=== PATIENT | female | born 1930 | race Caucasian/White ===

== ENCOUNTER 2021-08-17 11:08 | Emergency (ER) | payer MEDICARE, OTHER ==
[~2021-08-17] VITALS: Ht 160 cm; Wt 59.0 kg
[2021-08-17] MEDS ORDERED: ACETAMINOPHEN 325 MG TABLET PO ONE (11:30)
[2021-08-17] MEDS ORDERED: BENZ1LOZ58 PO (11:50)
[2021-08-17] MEDS ORDERED: ISOS30TA86 PO (11:50)
[2021-08-17] MEDS ORDERED: ESCI5TAB PO (11:50)
[2021-08-17] MEDS ORDERED: ALBU2.5V13 NEB (11:50)
[2021-08-17] MEDS ORDERED: SITA1TBM4 PO (11:50)
[2021-08-17] MEDS ORDERED: APIX2.5T PO (11:50)
[2021-08-17] MEDS ORDERED: IPRA0.2S48 NEB (11:50)
[2021-08-17] MEDS ORDERED: INSU100I26 SQ (11:50)
[2021-08-17] MEDS ORDERED: VALS160T2 PO (11:50)
[2021-08-17] MEDS ORDERED: BIMA2.5D5 EACHEYE (11:50)
[2021-08-17] MEDS ORDERED: CARV3.122 PO (11:50)
[2021-08-17] MEDS ORDERED: ATOR40TA PO (11:50)
[2021-08-17] MEDS ORDERED: ACET-2154 PO (11:50)
[2021-08-17] MEDS ORDERED: FERR325T28 PO (11:50)
[2021-08-17] MEDS ORDERED: QUET25TA PO (11:50)
--- NOTE | 2021-08-17 12:14 | NUR ---
PT IS IN ROOM #1B. DR PEGUERO EVALUATED THE PT.
[2021-08-17] MEDS ORDERED: ACETAMINOPHEN 325 MG TABLET ONE (12:54)
--- NOTE | 2021-08-17 14:20 | NUR ---
PT WAS D/C'd TO HER NURSING FACILITY VIA BLS AMBULANCE. REPORT WAS GIVEN TO AMBULANCE EMT AND TO NURSING FACILITY REP.
[2021-08-17 14:22] VITALS: BP 135/75
== END 2021-08-17 14:23 ==
LOC: ER 11:08
DX: S09.90XA Unspecified injury of head, initial encounter (principal); W18.30XA Fall on same level, unspecified, initial encounter; Y92.121 Bathroom in nursing home as the place of occurrence of the external cause; M51.36 Other intervertebral disc degeneration, lumbar region; M48.061 Spinal stenosis, lumbar region without neurogenic claudication; M48.54XA Collapsed vertebra, not elsewhere classified, thoracic region, initial encounter for fracture; M50.30 Other cervical disc degeneration, unspecified cervical region; Z86.73 Personal history of transient ischemic attack (TIA), and cerebral infarction without residual deficits; I48.91 Unspecified atrial fibrillation; Z79.01 Long term (current) use of anticoagulants; E11.9 Type 2 diabetes mellitus without complications; Z79.84 Long term (current) use of oral hypoglycemic drugs; Z66 Do not resuscitate
CPT/HCPCS: 70450; 72125; 72131; 72170; A4663

== ENCOUNTER 2021-08-18 22:35 | Inpatient (IN) | payer MEDICARE, OTHER ==
[~2021-08-18] VITALS: Ht 160 cm; Wt 51.3 kg
[~2021-08-18 22:35] MED LIST: ACET-2154 PO; ALBU2.5V13 NEB; APIX2.5T PO; ATOR40TA PO; BENZ1LOZ58 PO; BIMA2.5D5 EACHEYE; CARV3.122 PO; ESCI5TAB PO; FERR325T28 PO; INSU100I26 SQ; IPRA0.2S48 NEB; ISOS30TA86 PO; QUET25TA PO; SITA1TBM4 PO; VALS160T2 PO
--- NOTE | 2021-08-18 22:51 | NUR ---
Dr. Brown at bedside for MSE.
[2021-08-18] MEDS ORDERED: CEFTRIAXONE 1 G in IV DEXTROSE 5% 50 ML IV ONE (23:00)
[2021-08-18] MEDS ORDERED: IV NORMAL SALINE 1000 ML BAG IV ONE (23:00)
--- NOTE | 2021-08-18 23:11 | NUR ---
Xray at bedside.
[2021-08-18] MEDS ORDERED: CEFTRIAXONE /D5W 50ML IVPB **ER PYXIS IV ONE (23:15)
[2021-08-18] MEDS ORDERED: ONDANSETRON 4 MG/2 ML VIAL IV ONE (23:30)
[2021-08-19 00:03] LABS: CARBON DIOXIDE 25 mmol/L (21-32); CHLORIDE 103 mmol/L (98-107); CREATININE 1.8 mg/dL (0.6-1.3); GLUCOSE 173 mg/dL (74-106); UREA NITROGEN, BLOOD 30 mg/dL (7-18)
[2021-08-19 00:16] LABS: ALANINE AMINOTRANSFERASE 21 U/L (14-59); ALKALINE PHOSPHATASE 109 U/L (50-136); ASPARTATE AMINOTRANSFERASE 20 U/L (15-37); BILIRUBIN,DIRECT 0.1 mg/dL (0.0-0.2); BILIRUBIN,TOTAL 0.2 mg/dL (0.2-1.0); TOTAL PROTEIN, SERUM 7.3 g/dL (6.4-8.2)
[2021-08-19 00:20] LABS: MEAN CORPUSCULAR HEMOGLOBIN 28.3 uug (24.7-32.8); PLATELET COUNT (AUTO) 447 K/uL (179-408)
--- NOTE | 2021-08-19 00:30 | NUR ---
Pt out of ER for CT.
[2021-08-19 00:52] LABS: *BILIRUBIN,URIN NEGATIVE (NEGATIVE); *BLOOD, URINE NEGATIVE (NEGATIVE); *CLARITY,URINE CLOUDY (CLEAR); *COLOR,URINE YELLOW (YELLOW); *KETONES,URINE TRACE (NEGATIVE); *UROBILINOGEN,URINE 0.2 E.U./dl (NORMAL); LEUKOCYTE ESTERASE ,URINE 1+ (NEGATIVE); NITRITE, URINE NEGATIVE (NEGATIVE); PH,URINE 5.5 (5.0-8.0); UGLUCOSE NEGATIVE (NEGATIVE)
--- NOTE | 2021-08-19 01:00 | NUR ---
Pt back to ER from CT.
[2021-08-19 01:25] LABS: BACTERIA,URINE NONE SEEN /HPF (NONE SEEN); RBC,URINE NONE SEEN /HPF (0-3); SQUAMOUS EPITHELIAL CELL,UR MODERATE /HPF (NONE SEEN); YEAST,URINE MANY /HPF (NONE SEEN)
[2021-08-19] MEDS ORDERED: ONDANSETRON 4 MG/2 ML VIAL ONE (01:34)
[2021-08-19] MEDS ORDERED: INSU100I26 SQ (03:07)
--- NOTE | 2021-08-19 03:52 | NUR ---
Dr. Brown on panel call with Dr. Cutler. Patient accepted for admission to [facility], diagnosis: altered mental status.
[2021-08-19] MEDS ORDERED: ONDANSETRON 4 MG/2 ML VIAL IV PRN (04:15)
[2021-08-19] MEDS ORDERED: MAGNESIUM HYDROXIDE 30 ML LIQUID UDC PO PRN (04:15)
[2021-08-19] MEDS ORDERED: IV NS 1000 ML 1,000 ML IV SCH (04:15)
[2021-08-19] MEDS ORDERED: REMEDY ESSENTIAL ZINC PASTE 113 GM TP PRN (04:15)
[2021-08-19] MEDS ORDERED: CEFEPIME HCL 2 G in IV DEXTROSE 5% 100 ML IV SCH (06:00)
[2021-08-19 06:06] LABS: HEMATOCRIT 26.8 % (31.2-41.9); MEAN CORPUSCULAR HEMOGLOBIN 28.4 uug (24.7-32.8); MEAN CORPUSCULAR VOLUME 86.2 fL (75.5-95.3); PLATELET COUNT (AUTO) 401 K/uL (179-408)
[2021-08-19 06:23] LABS: CARBON DIOXIDE 29 mmol/L (21-32); CHLORIDE 104 mmol/L (98-107); CREATININE 1.4 mg/dL (0.6-1.3); GLUCOSE 197 mg/dL (74-106); MAGNESIUM 1.4 mg/dL (1.8-2.4); PHOSPHOROUS 3.7 mg/dL (2.5-4.9); POTASSIUM 3.7 mmol/L (3.5-5.1); UREA NITROGEN, BLOOD 27 mg/dL (7-18)
--- NOTE | 2021-08-19 06:45 | NUR ---
Report given to Roverto schmitz.
[2021-08-19] MEDS ORDERED: CEFEPIME HCL 1 G VIAL ONE (07:07)
--- NOTE | 2021-08-19 07:29 | NUR ---
PT IS RESTING IN BED COMFORTABLY. NO S/S OF ACUTE DISTRESS AT THIS TIME. CONTINUE TO MONITOR THE PT.
[2021-08-19] MEDS ORDERED: VANCOMYCIN IV 750 MG in IV DEXTROSE 5% 250 ML IV ONE (07:30)
[2021-08-19] MEDS ORDERED: IV NS 1000 ML 1,000 ML IV PRN (08:05)
--- NOTE | 2021-08-19 08:10 | NUR ---
REPORT WAS GIVEN TO BUSINESS DEPARTMENT CHAIR. PT WAS TRANSFERED TO ROOM #307.
[2021-08-19 08:35] VITALS: BP 119/60
[2021-08-19] MEDS ORDERED: IPRATROPIUM BROMIDE 0.5 MG/2.5 ML NEBU NEB PRN (09:15)
[2021-08-19] MEDS ORDERED: ACETAMINOPHEN 325 MG TABLET-SA PATIENTS-PAIN ONLY PO PRN (09:15)
[2021-08-19] MEDS ORDERED: DEXTROSE 50% 50 ML DISP.SYRIN IV PRN (09:30)
[2021-08-19] MEDS ORDERED: ESCITALOPRAM OXALATE 10 MG TABLET PO SCH (10:00)
[2021-08-19 10:22] LABS: THYROID STIMULATING HORMONE 1.554 mIU/mL (0.358-3.740)
[2021-08-19] MEDS: MAGNESIUM SULFATE/D5W 100 ML IV SCH ×4 (10:24→14:48)
[2021-08-19] MEDS: ISOSORBIDE MONONITRATE 30 MG TAB.SR.24H PO SCH (10:26)
[2021-08-19] MEDS: APIXABAN 2.5 MG TABLET PO SCH ×2 (10:27→20:44)
[2021-08-19] MEDS: BLOOD SUGAR DIAGNOSTIC 1 EACH STRIP VI SCH ×3 (11:32→20:59)
[2021-08-19] MEDS: INSULIN REGULAR, HUMAN 300 UNIT/3 ML VIAL SQ PRN ×3 (11:35→20:46)
[2021-08-19] MEDS ORDERED: LORAZEPAM 0.5 MG TABLET PO PRN (14:45)
[2021-08-19 15:11] VITALS: BP 140/59
[2021-08-19] MEDS ORDERED: QUETIAPINE FUMARATE 25 MG TABLET PO PRN (16:00)
--- NOTE | 2021-08-19 18:24 | NUR ---
Patient resting comfortably in bed. Patient given medication to help calm down patient due to anxiety. Patient sleeping in bed with stable vital signs. IV site patent and intact. Bed left in lowest position with call light within reach. Comfort measures provided. Will endorse information to PM nurse.
[2021-08-19 20:23] VITALS: BP 113/65
[2021-08-19] MEDS: LATANOPROST OPHT DROP 2.5 ML BOTTLE EACHEYE SCH (20:43)
[2021-08-19] MEDS: INSULIN GLARGINE,HUM 300 UNITS/3 ML CARTRIDGE SQ SCH (20:57)
[2021-08-19] MEDS ORDERED: BIMATOPROST 0.01% OPHT DROP 2.5 ML BOTTLE EACHEYE SCH (21:00)
[2021-08-19] MEDS ORDERED: QUETIAPINE FUMARATE 25 MG TABLET PO SCH (21:00)
[2021-08-19] MEDS ORDERED: ATORVASTATIN 40 MG TABLET PO SCH (21:00)
[2021-08-19] MEDS ORDERED: PIPERACILLIN SODIUM/TAZO 3.375 GM VIAL ONE ×2 (22:56)
[2021-08-19] MEDS ORDERED: FLUCONAZOLE 200 MG/100 ML PIGGYBACK ONE (22:57)
[2021-08-19] MEDS: FLUCONAZOLE 200 MG/NS 100ML IV 100 MG in PREMIXED 1 EACH IV SCH (23:19)
[2021-08-19] MEDS: PIPERACILLIN SODIUM/TAZOBACTAM 3.375 G in IV DEXTROSE 5% 50 ML IV SCH (23:20)
[2021-08-20 00:11] VITALS: BP 102/53
[2021-08-20 04:40] VITALS: BP 121/76
--- NOTE | 2021-08-20 04:57 | NUR ---
Received pt in stable condition. No acute respiratory distress. Pt keeps pulling out Tele and has pulled out IV. Received order for restraints for Bilateral mittens and Ativan increased to 1 mg IV. Placed IV site on R UA 20 g intact and patent. Will continue to monitor. All needs attended. Addendum: 08/20/21 at 0510 by SHRUTHI PERES RN Correct time 1999.
[2021-08-20] MEDS: PIPERACILLIN SODIUM/TAZOBACTAM 3.375 G in IV DEXTROSE 5% 50 ML IV SCH (05:14)
[2021-08-20] MEDS ORDERED: PIPERACILLIN SODIUM/TAZOBACTAM 3.375 G in IV DEXTROSE 5% 50 ML IV SCH (06:00)
[2021-08-20] MEDS ORDERED: CEFEPIME HCL 2 G in IV DEXTROSE 5% 100 ML IV SCH (06:00)
[2021-08-20 06:36] LABS: MEAN CORPUSCULAR HEMOGLOBIN 27.8 uug (24.7-32.8); MEAN CORPUSCULAR VOLUME 85.8 fL (75.5-95.3); PLATELET COUNT (AUTO) 459 K/uL (179-408)
[2021-08-20] MEDS: BLOOD SUGAR DIAGNOSTIC 1 EACH STRIP VI SCH ×4 (07:05→20:53)
[2021-08-20 07:14] LABS: BILIRUBIN,TOTAL 0.3 mg/dL (0.2-1.0); CREATININE 0.9 mg/dL (0.6-1.3); MAGNESIUM 2.4 mg/dL (1.8-2.4); PHOSPHOROUS 2.6 mg/dL (2.5-4.9); POTASSIUM 3.4 mmol/L (3.5-5.1); TOTAL PROTEIN, SERUM 7.4 g/dL (6.4-8.2); VANCOMYCIN,RANDOM 7.3 ug/mL (18.0-26.0)
--- NOTE | 2021-08-20 08:00 | NUR ---
awake but confused, repositioned and made comfortable, fed with breakfast, aspiration precautions observed, no distress noted, on e 2l/nc, purewick to suction- draining chandrika urine, safety measures maintained, bed alarm on
[2021-08-20] MEDS: VANCOMYCIN IV 750 MG in IV DEXTROSE 5% 250 ML IV SCH (08:24)
[2021-08-20] MEDS: ISOSORBIDE MONONITRATE 30 MG TAB.SR.24H PO SCH (08:44)
[2021-08-20] MEDS: APIXABAN 2.5 MG TABLET PO SCH ×2 (08:44→17:31)
[2021-08-20] MEDS ORDERED: POTASSIUM CHLORIDE 20 MEQ TAB.PRT.SR PO SCH (09:30)
[2021-08-20 09:44] VITALS: BP 137/62
--- NOTE | 2021-08-20 11:30 | NUR ---
daughter here, updated and helped pt with lunch, no coughing episode noted, aspiration precaution observed, repositioned after to side with pillow for support, heels offloaded
[2021-08-20] MEDS: INSULIN REGULAR, HUMAN 300 UNIT/3 ML VIAL SQ PRN ×2 (12:16→17:33)
[2021-08-20] MEDS: ACETAMINOPHEN 325 MG TABLET PO PRN (13:27)
--- NOTE | 2021-08-20 13:27 | NUR ---
medicated for c/o pain on right arm with tylenol as ordered prn, repositioned and made comfortable
[2021-08-20] MEDS: PIPERACILLIN SODIUM/TAZOBACTAM 3.375 G in IV DEXTROSE 5% 100 ML IV SCH ×2 (13:28→21:57)
[2021-08-20 14:03] VITALS: BP 114/48
[2021-08-20 18:14] VITALS: BP 107/53
--- NOTE | 2021-08-20 18:59 | NUR ---
family here at bedside, appetite fair, no choking episode noted, no distress noted, all needs attended and met, no distress noted, safety measures in place
[2021-08-20] MEDS: LATANOPROST OPHT DROP 2.5 ML BOTTLE EACHEYE SCH (20:49)
[2021-08-20] MEDS: FLUCONAZOLE 200 MG/NS 100ML IV 100 MG in PREMIXED 1 EACH IV SCH (20:52)
[2021-08-20] MEDS: INSULIN GLARGINE,HUM 300 UNITS/3 ML CARTRIDGE SQ SCH (21:00)
[2021-08-20 21:01] VITALS: BP 102/48
[2021-08-21] VITALS (12 sets, daily range): BP systolic 94–128; BP diastolic 52–99
[2021-08-21] MEDS: PIPERACILLIN SODIUM/TAZOBACTAM 3.375 G in IV DEXTROSE 5% 100 ML IV SCH ×3 (05:05→21:21)
--- NOTE | 2021-08-21 06:30 | NUR ---
Pt rested well in between care; no acute distress; repositioned for comfort; safety maintained; remained onmittens; continue to monitor; continue plan of care.
[2021-08-21] MEDS: BLOOD SUGAR DIAGNOSTIC 1 EACH STRIP VI SCH ×4 (06:37→20:52)
[2021-08-21 06:46] LABS: HEMATOCRIT 25.2 % (31.2-41.9); MEAN CORPUSCULAR HEMOGLOBIN 28.4 uug (24.7-32.8); MEAN CORPUSCULAR VOLUME 85.9 fL (75.5-95.3); PLATELET COUNT (AUTO) 410 K/uL (179-408)
[2021-08-21 07:06] LABS: CREATININE 0.9 mg/dL (0.6-1.3); MAGNESIUM 1.8 mg/dL (1.8-2.4); PHOSPHOROUS 3.2 mg/dL (2.5-4.9); POTASSIUM 3.8 mmol/L (3.5-5.1)
--- NOTE | 2021-08-21 07:30 | NUR ---
RECEIVED PATIENT ON BED AWAKE AND CONFUSED. MICHAEL MITTENS IN PLACED. NOC SHIFT RN SAID PT IS PULLING LINES. ON 2L NC. UA IV 20G INTACT AND PATENT.
--- NOTE | 2021-08-21 09:00 | NUR ---
PATIENT IS AGITATED. TRYING TO TAKE MITTENS OFF AND PULL HER IV LINES. AFIB NOTED ON TELE MONITOR 140-160. WILL CONTINUE TO MONITOR
[2021-08-21] MEDS: APIXABAN 2.5 MG TABLET PO SCH ×2 (09:50→17:00)
[2021-08-21] MEDS: VANCOMYCIN IV 750 MG in IV DEXTROSE 5% 250 ML IV SCH (09:51)
[2021-08-21] MEDS: ISOSORBIDE MONONITRATE 30 MG TAB.SR.24H PO SCH (09:51)
[2021-08-21] MEDS: LORAZEPAM 2 MG/1 ML VIAL IV PRN (09:55)
--- NOTE | 2021-08-21 09:55 | NUR ---
ADMINISTERED ATIVAN FOR AGITATION . WILL FU IN 30MINS
--- NOTE | 2021-08-21 10:30 | NUR ---
ATIVAN EFFECTIVE PATIENT IS CALM AND SLEEPING. DR MOSLEY WAS NOTIFIED ABOUT THE UNCONTROLLED AFIB. WILL FOLLOWUP WITH DR SEAMAN.
[2021-08-21] MEDS: INSULIN REGULAR, HUMAN 300 UNIT/3 ML VIAL SQ PRN ×3 (11:50→20:53)
[2021-08-21] MEDS ORDERED: AMIODARONE HCL IV 150 MG in IV DEXTROSE 5% 100 ML IV ONE (12:00)
--- NOTE | 2021-08-21 12:35 | NUR ---
DR. MOSLEY TRANSFER PT ON [facility]. AMIODARONE DRIP WAS ORDER AND GIVEN BY GUILLERMINA MCCULLOUGHPROJECT DEVELOPER.
--- NOTE | 2021-08-21 12:45 | NUR ---
PT WAS TRANSFERED TO CCU FOR UNCONTROLLED AFIB. REPORT GIVEN TO DEL CCU RN. ALL PERTAINING INFO WAS GIVEN.
--- NOTE | 2021-08-21 12:50 | NUR ---
Received pt. from [facility] via bed, been assisted by Rajeev and nursing automobile assembly supervisor. Pt. placed on cardiac monitoring and currently on Afib uncontrolled rate in the low 100's. sbp of 126/65, Amiodarone bolus bag finishing infusing. Saturation of 98% on 2LNC. Breathing rate in the 15-mid 20's shallow breathing noted. IV access patent. Diaper in place. Neuro-walker pt. opening eyes only at this time not following commands, aphasic. moaning only. Will continue with care plan
[2021-08-21] MEDS: AMIODARONE HCL IV 450 MG in IV DEXTROSE 5% 250 ML IV PRN ×2 (13:06→19:43)
--- NOTE | 2021-08-21 17:20 | NUR ---
Patient remains aphasic at this time unable to drink and for safety 1700 medications not administered.
[2021-08-21] MEDS: LATANOPROST OPHT DROP 2.5 ML BOTTLE EACHEYE SCH (20:21)
[2021-08-21] MEDS: INSULIN GLARGINE,HUM 300 UNITS/3 ML CARTRIDGE SQ SCH (20:51)
[2021-08-22] VITALS: BP 114/56
[2021-08-22 04:00] VITALS: BP 116/76
[2021-08-22 05:03] LABS: HEMATOCRIT 24.9 % (31.2-41.9); MEAN CORPUSCULAR HEMOGLOBIN 28.1 uug (24.7-32.8); MEAN CORPUSCULAR VOLUME 85.4 fL (75.5-95.3); PLATELET COUNT (AUTO) 441 K/uL (179-408)
[2021-08-22] MEDS: PIPERACILLIN SODIUM/TAZOBACTAM 3.375 G in IV DEXTROSE 5% 100 ML IV SCH ×3 (05:17→21:11)
[2021-08-22 05:19] LABS: BILIRUBIN,TOTAL 0.2 mg/dL (0.2-1.0); CREATININE 0.9 mg/dL (0.6-1.3); MAGNESIUM 1.5 mg/dL (1.8-2.4); PHOSPHOROUS 3.2 mg/dL (2.5-4.9); POTASSIUM 3.6 mmol/L (3.5-5.1); TOTAL PROTEIN, SERUM 6.4 g/dL (6.4-8.2)
[2021-08-22] MEDS: BLOOD SUGAR DIAGNOSTIC 1 EACH STRIP VI SCH ×4 (06:35→21:01)
--- NOTE | 2021-08-22 08:20 | NUR ---
Tranferred from CCU 5 to Room 318 via hospital bed, with campus monitor, Afib controlled, without any incident. VSS. NAD. Report given to DENAE Johns.
--- NOTE | 2021-08-22 08:30 | NUR ---
RECEIVED PATIENT TRANSFERRED FROM CCU VIA BED, RESTING WITH EYES CLOSED NO SS OF PAIN OR DISTRESS. SR ON MONITOR AT 61/MIN
[2021-08-22 08:40] VITALS: BP 133/57
[2021-08-22] MEDS: APIXABAN 2.5 MG TABLET PO SCH ×2 (08:42→16:43)
[2021-08-22] MEDS: ISOSORBIDE MONONITRATE 30 MG TAB.SR.24H PO SCH (08:42)
[2021-08-22] MEDS: VANCOMYCIN IV 750 MG in IV DEXTROSE 5% 250 ML IV SCH (09:13)
[2021-08-22] MEDS: MAGNESIUM SULFATE/D5W 100 ML IV SCH ×2 (10:03→10:24)
[2021-08-22] MEDS: AMIODARONE HCL IV 450 MG in IV DEXTROSE 5% 250 ML IV PRN (10:20)
--- NOTE | 2021-08-22 11:00 | NUR ---
FOUND PATIENT ON THE FLOOR ON A SITTING POSITION AT BEDSIDE, ALERT BUT CONFUSED X3. NOTED LACERATION ON THE FOREHEAD 1.3X 0.5 CM, SKIN BRIDGE OF NOSE NOTED RED. FURTHER BODY ASSESSMENT DONE AND NO LIMITATION OF MOVEMENT ON ALL JOINTS NOTED. PLACE BACK TO BED WITH 3 STAFF ASSIST. VS TAKEN 128/69, HR 100, AFIB RR 20, TEMP 98.7, SAT 95%. NO NAUSEA AND VOMITING, SEEN BY HOSPITALIST WITH ORDER FOR FACIAL XRAY. CLOSELY MONITORED.
--- NOTE | 2021-08-22 11:38 | NUR ---
XRAY OF THE FACE DONE. AWAITING FOR REPORT
[2021-08-22] MEDS: INSULIN REGULAR, HUMAN 300 UNIT/3 ML VIAL SQ PRN ×3 (11:51→21:09)
[2021-08-22 12:00] VITALS: BP 128/69
[2021-08-22] MEDS: ACETAMINOPHEN 325 MG TABLET PO PRN (13:05)
--- NOTE | 2021-08-22 13:35 | NUR ---
PATIENT CONVERTED TO SR RANGES 60-64/MIN. CLOSELY MONITORED
[2021-08-22 16:00] VITALS: BP 131/59
--- NOTE | 2021-08-22 17:25 | NUR ---
NO CHANGE IN NEURO STATUS FROM MORNING FALL, REMAINS ALERT WITH ON AND OFF CONFUSION, NO SIGNS OF HEADACHE, NO VOMITING. NO ACTIVE BLEEDING FROM THE FOREHEAD LACERATION
--- NOTE | 2021-08-22 19:00 | NUR ---
Received patient in bed, hob elevate, patient calm and cooperative with care, caregiver at bedside, wrist restraints is off at this time, on Amidarone drip at this time, tele monitor sinus rhythm 60 -65, cont to monitor.
[2021-08-22 20:00] VITALS: BP 118/51
[2021-08-22] MEDS: LATANOPROST OPHT DROP 2.5 ML BOTTLE EACHEYE SCH (20:44)
[2021-08-22] MEDS: INSULIN GLARGINE,HUM 300 UNITS/3 ML CARTRIDGE SQ SCH (21:08)
[2021-08-22] MEDS: LORAZEPAM 2 MG/1 ML VIAL IV PRN (22:48)
--- NOTE | 2021-08-22 23:31 | NUR ---
Patient yelling and screaming, pulled out right hand IV access, agitated, wrist restraints was put on to prevent patient hurting herself, given Ativan 1mg via IV for severe agitation yelling and screaming continously, cont to monitor.
[2021-08-23] VITALS: BP 151/63
[2021-08-23 04:00] VITALS: BP 122/55
[2021-08-23] MEDS: PIPERACILLIN SODIUM/TAZOBACTAM 3.375 G in IV DEXTROSE 5% 100 ML IV SCH ×3 (05:27→21:38)
[2021-08-23] MEDS: BLOOD SUGAR DIAGNOSTIC 1 EACH STRIP VI SCH ×4 (05:27→20:14)
[2021-08-23 06:20] LABS: MAGNESIUM 1.9 mg/dL (1.8-2.4); POTASSIUM 3.4 mmol/L (3.5-5.1)
[2021-08-23 06:22] LABS: HEMATOCRIT 24.5 % (31.2-41.9); MEAN CORPUSCULAR HEMOGLOBIN 28.5 uug (24.7-32.8); MEAN CORPUSCULAR VOLUME 85.4 fL (75.5-95.3); PLATELET COUNT (AUTO) 452 K/uL (179-408)
--- NOTE | 2021-08-23 06:41 | NUR ---
Patient asleep but arousable, no sob no chest pain, no complain of pain at this time, patient calm and cooperative, rendered total assist with adl's, kept clean and dry, turn and reposition, tx done on sacral DTI, cont to monitor.
[2021-08-23 07:30] VITALS: BP 138/67
--- NOTE | 2021-08-23 08:00 | NUR ---
AWAKE ALERT AND VERBALLY RESPONSIVE BU CONFUSED, SPEAKS FARSI, DENIES JENSEN, N/V. REMAINS SR ON MONITOR
[2021-08-23] MEDS: INSULIN REGULAR, HUMAN 300 UNIT/3 ML VIAL SQ PRN ×3 (08:07→20:17)
[2021-08-23] MEDS: AMIODARONE HCL 200 MG TABLET PO SCH (08:09)
[2021-08-23] MEDS: ISOSORBIDE MONONITRATE 30 MG TAB.SR.24H PO SCH (08:09)
[2021-08-23] MEDS: APIXABAN 2.5 MG TABLET PO SCH ×2 (08:10→16:41)
--- NOTE | 2021-08-23 12:00 | NUR ---
NO ACUTE CHANGE FROM AM ASSESSMENT. CROSSWORD PUZZLE MAKER MEAGHAN SPOKE WITH FAMILY. PLAN DC TO [facility]. AWAITING ORDERS FROM HOSPITALIST
[2021-08-23 12:07] VITALS: BP 91/49
[2021-08-23 16:00] VITALS: BP 95/49
--- NOTE | 2021-08-23 17:35 | NUR ---
FAMILY REQUESTED IF PATIENT CAN STAY 1 MORE NIGHT, DR GANNON NOTIFIED AND SAID OKAY FOR 1 MORE NIGHT
--- NOTE | 2021-08-23 19:30 | NUR ---
Received pt awake, and shouting and yelling. Pt in no acute respiratory distress. Pt on 2l nasal cannula. Pt on sinus rhythm. Iv intact.Safety and comfort provided. Will continue to monitor.
[2021-08-23] MEDS: ACETAMINOPHEN 325 MG TABLET PO PRN (19:38)
[2021-08-23 20:00] VITALS: BP 154/67
[2021-08-23] MEDS: LATANOPROST OPHT DROP 2.5 ML BOTTLE EACHEYE SCH (20:10)
[2021-08-23] MEDS: INSULIN GLARGINE,HUM 300 UNITS/3 ML CARTRIDGE SQ SCH (20:15)
[2021-08-23] MEDS: LORAZEPAM 2 MG/1 ML VIAL IV PRN (20:18)
--- NOTE | 2021-08-23 20:18 | NUR ---
at 2018H Ativan 1mg prn given to pt for agitation. Pt yelling, restless, and screaming.Will continue to monitor.
--- NOTE | 2021-08-23 22:30 | NUR ---
Pt calmer and in no acute distress. Will continue to monitor.
--- NOTE | 2021-08-23 22:31 | NUR ---
Pt medication of Ativan is effective. Pt calmer.
[2021-08-24] VITALS: BP 146/59
[2021-08-24 04:00] VITALS: BP 155/61
[2021-08-24] MEDS: PIPERACILLIN SODIUM/TAZOBACTAM 3.375 G in IV DEXTROSE 5% 100 ML IV SCH ×2 (05:55→12:37)
--- NOTE | 2021-08-24 06:09 | NUR ---
Pt slept intermittently. Pt in no acute distress. Prescribed medication given and pt tolerated it well. Pt turned and repositioned.Pt on 1.5l on nasal cannula. Pt on sinus rhythm.Safety and comfort provided. Will Endorse to incoming nurse for continuity fo care.
--- NOTE | 2021-08-24 06:10 | NUR ---
Licking juice given to pt. Pt tolerated it well. Pt didn't aspirate. Endorse to incoming nurse.
[2021-08-24] MEDS: BLOOD SUGAR DIAGNOSTIC 1 EACH STRIP VI SCH ×3 (06:32→17:11)
--- NOTE | 2021-08-24 08:00 | NUR ---
AWAKE ALERT AND VERBALLY RESPONSIVE, NO SS OF PAIN OR SOB WITH O2 AT 2L NC SATURATING 97%. PLAN PT,OT EVAL FOR DISCHARGE PURPOSES. SR ON MONITOR
[2021-08-24] MEDS: APIXABAN 2.5 MG TABLET PO SCH ×2 (08:42→17:14)
[2021-08-24] MEDS: ISOSORBIDE MONONITRATE 30 MG TAB.SR.24H PO SCH (08:42)
[2021-08-24] MEDS: AMIODARONE HCL 200 MG TABLET PO SCH (08:42)
[2021-08-24 11:02] VITALS: BP 143/55
[2021-08-24] MEDS: ACETAMINOPHEN 325 MG TABLET PO PRN ×2 (11:53→17:24)
[2021-08-24] MEDS: INSULIN REGULAR, HUMAN 300 UNIT/3 ML VIAL SQ PRN ×2 (11:55→17:13)
--- NOTE | 2021-08-24 12:12 | NUR ---
MOANING AND SPEAKING IN FARSI. PER FAMILY PATIENT IS CONFUSED. MEDICATED WITH TYLENOL FOR MOANING AND OBSERVED. SR ON MONITOR
--- NOTE | 2021-08-24 13:00 | NUR ---
patient resting comfortably with eyes close. sr on monitor
--- NOTE | 2021-08-24 13:30 | NUR ---
case liner spoke with daughter about discharge preference, per dr blanco cantu to discharge home with home health follow-up
[2021-08-24 15:44] VITALS: BP 149/58
--- NOTE | 2021-08-24 18:26 | NUR ---
PATIENT WAS DISCHARGED VIA AMBULANCE, STABLE. INSTRUCTION GIVEN TO DAUGHTER AND AMBULANCE
== END 2021-08-24 18:30 | disposition home health service (06) | DRG 720 ==
LOC: ER 22:38 → TELE3 08-19 08:03 → TELE-TD3 08-21 11:31 → CCU 08-21 12:59 → TELE-TD3 08-22 08:07 → TELE3 08-23 10:00
PROVIDERS: ADMIT Internal Medicine
DX: A41.9 Sepsis, unspecified organism (principal); N17.0 Acute kidney failure with tubular necrosis; I50.31 Acute diastolic (congestive) heart failure; G92.8 Other toxic encephalopathy; D68.59 Other primary thrombophilia; I48.20 Chronic atrial fibrillation, unspecified; E83.41 Hypermagnesemia; B37.49 Other urogenital candidiasis; A04.9 Bacterial intestinal infection, unspecified; D50.9 Iron deficiency anemia, unspecified; E11.65 Type 2 diabetes mellitus with hyperglycemia; E78.5 Hyperlipidemia, unspecified; E11.51 Type 2 diabetes mellitus with diabetic peripheral angiopathy without gangrene; Z86.73 Personal history of transient ischemic attack (TIA), and cerebral infarction without residual deficits; Z20.822 Contact with and (suspected) exposure to COVID-19; Z79.01 Long term (current) use of anticoagulants; Z86.19 Personal history of other infectious and parasitic diseases; F02.80 Dementia in other diseases classified elsewhere, unspecified severity, without behavioral disturbance, psychotic disturbance, mood disturbance, and anxiety; G30.9 Alzheimer's disease, unspecified; I11.0 Hypertensive heart disease with heart failure; Z66 Do not resuscitate; K56.41 Fecal impaction; I50.9 Heart failure, unspecified; Z74.09 Other reduced mobility; Z79.4 Long term (current) use of insulin; R19.5 Other fecal abnormalities; S01.81XA Laceration without foreign body of other part of head, initial encounter; W06.XXXA Fall from bed, initial encounter; Y93.9 Activity, unspecified; Y92.230 Patient room in hospital as the place of occurrence of the external cause; M84.48XA Pathological fracture, other site, initial encounter for fracture; F01.50 Vascular dementia, unspecified severity, without behavioral disturbance, psychotic disturbance, mood disturbance, and anxiety; M48.00 Spinal stenosis, site unspecified
CPT/HCPCS: 36415; 51702; 70150; 70450; 71045; 73020; 74018; 82378; 83550; 83605; 83735; 84100; 84443; 84484; 85025; 85730; 87040; 87086; 87400; 93005; 93307; 97161; A4663; A6209; A6213; C1758; G0378; J0282; J0692; J0696; J1450; J1815; J2060; J2405; J2543; J3370; J3475; J7040; J7050